=== PATIENT | female | born 1935 | race Caucasian/White ===

== ENCOUNTER 2022-07-31 15:43 | Emergency (ER) | payer OTHER ==
[~2022-07-31] VITALS: Ht 157.5 cm; Wt 75.3 kg
--- NOTE | 2022-07-31 16:30 | NUR ---
Pt aware of plan of care. BRP - uses walker at baseline
--- NOTE | 2022-07-31 17:03 | NUR ---
Kristina gipson in [facility] - 07/31/22 at 1705 by JOSTIN Family at bedside aware of plan of care
[2022-07-31] MEDS ORDERED: ACETAMINOPHEN ES 500 MG TABLET PO ONE (17:30)
[2022-07-31] MEDS ORDERED: ACETAMINOPHEN ES 500 MG TABLET ONE (17:49)
--- NOTE | 2022-07-31 19:24 | NUR ---
Report to EUGENE Castellon
--- NOTE | 2022-07-31 19:41 | NUR ---
RECEIVED PT SITTING IN BED. AAOX4. COMPLAINING OF BACK PAIN SCALE OF 3/10. REQUESTING TO SEE A DOCTOR. MD MONTES MADE AWARE.
--- NOTE | 2022-07-31 20:27 | NUR ---
[facility] CALLED FOR BLS GOING BACK TO SNF PER ANA LAURA ETA 90 MIN
--- NOTE | 2022-07-31 21:40 | NUR ---
REPORT GIVEN TO [facility] EMT [facility] [address]
--- NOTE | 2022-07-31 21:42 | NUR ---
REPORT GIVEN MAXIMILIAN STACY
--- NOTE | 2022-07-31 22:37 | NUR ---
TRANSFERRED PATIENT TO [facility] VIA [facility]
[2022-07-31 22:38] VITALS: BP 134/73
--- NOTE | 2022-07-31 22:38 | NUR ---
Patient discharged to home in stable condition. Written and verbal after care instructions given. Patient verbalizes understanding of instruction.
== END 2022-07-31 22:39 ==
LOC: ER 15:45
DX: R51.9 Headache, unspecified (principal); M54.6 Pain in thoracic spine; I10 Essential (primary) hypertension; F41.9 Anxiety disorder, unspecified; E78.5 Hyperlipidemia, unspecified; Z88.0 Allergy status to penicillin; W18.30XA Fall on same level, unspecified, initial encounter; Y93.89 Activity, other specified; Y92.89 Other specified places as the place of occurrence of the external cause; Y99.8 Other external cause status
CPT/HCPCS: 70450-TC; 72125-TC